=== PATIENT | female | born 1935 | race Caucasian/White ===

== ENCOUNTER 2020-01-22 12:47 | Outpatient (CLI) | payer MEDICARE, OTHER, SELFPAY ==
--- NOTE | 2020-01-22 12:53 | ECG_ITS ---
Measurements Intervals [place] Rate: 58 P: 65 OR: 213 QRS: 76 QRSD: 108 T: 4 QT: 432 QTc: 426 Interpretive Statements SINUS BRADYCARDIA WITH FIRST DEGREE AV BLOCK BORDERLINE ST-T WAVE ABNORMALITY- ANT/INF LEADS BASELINE ARTIFACT- I, II, III, AVR, AVL, AVF, V1-V6 ABNORMAL ECG Electronically Signed On 01-22-2020 13:49:29 [employer] HOME by Ric Victor D.O.
[2020-01-22 13:49] LABS: Blood Urea Nitrogen 27 mg/dL (7-17); Calcium 8.6 mg/dL (8.4-10.2); Carbon Dioxide 30 mmol/L (22-30); Chloride 104 mmol/L (98-107); Estimated Glomerular Filt Rate 36; Glucose 96 mg/dL (65-105); Potassium 3.6 mmol/L (3.4-5.0); Sodium 141 mmol/L (137-145)
== END 2020-01-22 12:48 | disposition home or self-care (01) ==
LOC: ANHSURGERY 12:53
PROVIDERS: Anesthesiology; PCP Internal Medicine Geriatric Medicine; Visit Provider Plastic Surgery
DX: Z01.812 Encounter for preprocedural laboratory examination (principal); Z01.810 Encounter for preprocedural cardiovascular examination; I10 Essential (primary) hypertension; Z79.899 Other long term (current) drug therapy; R00.1 Bradycardia, unspecified; I44.0 Atrioventricular block, first degree
CPT/HCPCS: 36415; 80048; 93005

== ENCOUNTER 2020-02-05 01:19 | Day surgery (SDC) | payer MEDICARE, OTHER, SELFPAY ==
[2020-01-17 13:51] VITALS: BMI 35.2
--- NOTE | 2020-02-04 21:17 | HP_ITS ---
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 HISTORY: The patient is 84. 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 This appears to be 3 mm in diameter, has been scabbed for months. It seems nodular with a small depression in the middle. She has never had a skin cancer before on her face. I explained that excision of this would require frozen section that may be a very small issue, but might require a minimum treatment with the skin graft should it reveal a larger tumor and then a composite graft from the ear may be necessary. She would like to proceed with this. She prefers this under MAC anesthetic. She is aware that there will be scarring, maybe some deformity to her nose, there may be a need for a donor site elsewhere. There may be numbness in the area that is operated. There are risks incumbent to sedation anesthetic. PAST MEDICAL HISTORY: Current medication list reveals vitamin D3; hydrocodone which is 10/325, given out 120 at a time by Rosmery Hendrickson, the last prescription was for 01/12/2020. She also takes pantoprazole, duloxetine, topiramate, Indapamide, trazodone, and she uses a CPAP machine. ALLERGIES: SHE HAS NO KNOWN ALLERGIES TO MEDICATION. PAST SURGICAL HISTORY: Prior surgeries include cataract surgery, ankle surgery for skin cancer, broken back surgery in 2008, and total knee in 1996. She sees someone because of a history of meningitis 2 different times in 1968 and 2007. She is a nonsmoker. REVIEW OF SYSTEMS: Indicates that she does have home oxygen, sounds like since 2007. FAMILY HISTORY: Noncontributory. SOCIAL HISTORY: She lives in [place]. Her spouse is Juanjo. PHYSICAL EXAMINATION: GENERAL: She is alert, informative, and in no distress. She is a 5 foot 3 woman, weighing 200 pounds. HEENT: Reveals the site on the left nasal ala not far from the rim between alar bulge and the lobule. CHEST: Clear to auscultation. HEART: Regular rate and rhythm by palpation. ABDOMEN: Soft, nontender. EXTREMITIES: Normal. 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 PLAN: Excision with frozen section under MAC anesthetic with possible full-thickness skin graft or a composite graft from the ear. D I MT: [facility]
[2020-02-05] VITALS (7 sets, daily range): BP systolic 118–145; BP diastolic 57–71; PULSE 56–65; RESP 12–16; TEMP 36.1–37.3; O2SAT 93–100
--- NOTE | 2020-02-05 07:19 | WPDHPUPDATE1 ---
History and Physical Update Update Date/Time: 02/05/20 07:19 History and Physical has been reviewed, including an updated exam of the patient. There are NO changes in the patient's condition. Risks, benefits, and alternatives have been discussed and questions answered. Patient agrees to proceed with procedure.
--- NOTE | 2020-02-05 08:14 | WPDANESEPPF ---
Anes - Initial Pre Proc Eval Procedure: Operation Date: 02/05/20 07:30 Proposed Procedures p Excision Ulcerated Neoplasm Left Nasal Ala With Frozen Section And Full Thickness Skin Graft Or Composite Graft - George Esqueda MD Date/Time: 02/05/20 08:14 Surgeon: George Esqueda MD Pre Op Diagnosis: Ulcerated Neoplasm Left Nasal Ala Patient Data Age: 84 Gender: F Height: 1.6 m Weight: 91.35 kg Last Vital Signs Temp 37.3 C 02/05/20 07:56 Pulse 56 L 02/05/20 07:56 Resp 16 02/05/20 07:56 BP 118/61 02/05/20 07:56 Pulse Ox 100 02/05/20 07:56 Allergies Allergy/AdvReac Type Severity Reaction Status Date / Time No Known Allergies Allergy Mild Unverified 01/17/20 13:51 Home Medications Medication Instructions Recorded Confirmed Type cholecalciferol (vitamin D3) 2,000 unit PO DAILY 01/17/20 01/17/20 History [Vitamin D3] duloxetine 60 mg PO DAILY 01/17/20 01/17/20 History hydrocodone-acetaminophen [[place]] 1 tablet PO Q6H PRN 01/17/20 01/17/20 History indapamide 1.25 mg PO DAILY 01/17/20 01/17/20 History propranolol 20 mg PO HS 01/17/20 01/17/20 History trazodone 100 mg PO HS 01/17/20 01/17/20 History Patient hx anesthesia problems: none Family hx anesthesia problems: none PMFSH Past Medical History Medical History (Updated 02/05/20 @ 08:14 by Giorgio Sheridan DO) Fibromyalgia Hypertension BOYD (obstructive sleep apnea) CPAP Surgical History Surgical History (Updated 02/04/20 @ 09:13 by Giorgio Sheridan DO) History of total left knee replacement Social History Social History Gender identity (if verbalized by the patient): Female Anes - Eval Final PreProcedure Day of Procedure 02/05/20 08:14 Patient weight: obese Heart: regular rate and rhythm Lungs: clear to auscultation and normal air movement Airway: Mallampati scale class III Neurological: alert and oriented Last oral intake: >/= 8 hours ASA classification: III Emergent: no Anesthetic plan: proceed Anesthesia type and monitoring: general GIVS and standard monitoring Informed Consent: The patient's anesthetic plan and its attendant risks and benefits were discussed with the patient/family/POA. Questions were solicited and answers provided to the satisfaction of the patient/family/POA.
[2020-02-05] MEDS: LACTATED RINGERS 1,000 ML 30 ML IV CONT (08:15)
--- NOTE | 2020-02-05 08:52 | PM.OP ---
Procedure Note - Brief Procedure Note - Brief Date of procedure: 02/05/20 Pre-op diagnosis: Ulcerated Neoplasm Left Nasal Ala Post-op diagnosis: other (BCC ) Procedure performed: 1.0 excision of BCC left nasal ala with FS and FTSG 1.0 sq cm. Anesthesia: GLMA Surgeon: George Esqueda MD Fire Extinguisher Mechanic: Dewey Estimated blood loss (mL): 3 Pathology: yes Complications: No immediate complications Condition: stable Disposition: PACU
[2020-02-05] MEDS: LIDO 1%/EPINEPHRINE 1:100,000 20 ML VIAL 3 ML INFILTRATE (09:15)
[2020-02-05] MEDS: BACITRACIN OINTMENT 15 GM TUBE 1 APPLIC TOPICAL (09:15)
--- NOTE | 2020-02-05 09:16 | SUR.OPER ---
specimen given to marina in lab by giselle
--- NOTE | 2020-02-08 10:30 | P.OP_ITS ---
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 She was taken to the operating room and placed supine on the operating table. A time-out was held and confirmed. She was given general anesthesia with an LMA. The patient was prepped and draped in the usual fashion. The lesion was carefully examined and an ink brook was placed around the periphery of this. The site was infiltrated with 1% lidocaine with epinephrine. The specimen was incised and taken off just into the subcutaneous fat tissue. A suture was placed to identify the 12 o'clock position on this oval. The specimen was sent to pathology. the pathologist reported the presence of basal cell carcinoma with free margins. The wound was closed with a full- thickness skin graft from the left upper neck. The donor site was closed with intradermal 4-0 Vicryl suture and glue the graft was carefully defatted and inset with 5 0 nylon including quilting stitches to close space. The patient was transported to the recovery room in stable condition. She will be given a prescription for cephalexin and tramadol. Surgeon: George Esqueda MD
== END 2020-02-05 12:06 | disposition home or self-care (01) ==
PROVIDERS: PCP Internal Medicine Geriatric Medicine; Visit Provider Plastic Surgery
PROC: (CPT 11641; principal; 2020-02-05 07:30)
DX: C44.311 Basal cell carcinoma of skin of nose (principal); I10 Essential (primary) hypertension; G47.33 Obstructive sleep apnea (adult) (pediatric); M79.7 Fibromyalgia; Z79.891 Long term (current) use of opiate analgesic; E66.9 Obesity, unspecified; Z68.35 Body mass index [BMI] 35.0-35.9, adult; Z99.81 Dependence on supplemental oxygen
CPT/HCPCS: 11641; 15260; 88305; 88331; A9270; J0131; J1100; J2370; J2405; J2704; J3010; J7120

== ENCOUNTER 2023-06-02 17:01 | Emergency (ER) | payer MEDICARE, OTHER, SELFPAY ==
--- NOTE | ~2023-06-02 | XR_ITS ---
EXAM: XR knee RT min 4V DATE: 06/02/2023 17:41 HISTORY: TWISTING INJURY, MEDIAL KNEE PAIN . COMPARISON: None available. FINDINGS: Decreased mineralization. No fracture or dislocation. No lytic or blastic lesion. Tricompa rtmental osteoarthritis. Moderate volume joint fluid. No erosion or periosteal change. Soft tissues w ithin normal limits. IMPRESSION: Moderate joint effusion. No acute osseous finding in the right knee. Osteopenia. Reviewed, dictated and finalized at location K. IMPRESSION: Moderate joint effusion. No acute osseous finding in the right knee . Osteopenia.
[2023-06-02 17:10] VITALS: BP 154/57; PULSE 75; RESP 20; TEMP 36.8; O2SAT 96
--- NOTE | 2023-06-02 17:49 | ED.LOWEXIN ---
HPI - Extremity Injury (Lower) General Chief Complaint: Extremity Injury, Lower Stated Complaint: Right knee pain Time Seen by Provider: 06/02/23 17:48 Source: patient and RN notes reviewed Mode of arrival: ambulatory Limitations: no limitations History of Present Illness HPI Narrative: 87-year-old female presents concern for right knee pain. Reports 5 days ago she felt a pop when she was walking. She reports it is painful when she is walking on it, when she sits down. She reports that swollen. She denies intervention. She uses a walker at baseline. She denies redness, warmth, open skin. MD complaint: knee injury Related Data Home Medications Medication Instructions Recorded Confirmed cholecalciferol (vitamin D3) 100 2,000 unit PO DAILY 01/17/20 06/02/23 mcg (4,000 unit) capsule (Vitamin D3) propranolol 20 mg tablet 20 mg PO BID 01/17/20 06/02/23 trazodone 50 mg tablet 100 mg PO HS 01/17/20 06/02/23 bumetanide 0.5 mg tablet 0.5 mg PO DAILY 06/02/23 06/02/23 duloxetine 40 mg capsule,delayed 40 mg PO DAILY 06/02/23 06/02/23 release hydrocodone 10 mg-acetaminophen 1 tablet PO Q6H 06/02/23 06/02/23 325 mg tablet topiramate 50 mg tablet 50 mg PO DAILY 06/02/23 06/02/23 Allergies Allergy/AdvReac Type Severity Reaction Status Date / Time No Known Allergies Allergy Mild Unverified 02/05/20 08:34 Review of Systems Review of Systems: CONSTITUTIONAL: Denies malaise, chills, sweats, or fever. SKIN: Denies rash or itching, open skin, laceration, abrasion, redness, warmth MUSCULOSKELETAL: Reports right knee pain NEUROLOGIC: Denies numbness, weakness All systems reviewed & are unremarkable except as noted in HPI and below PMFSH Past Medical History Medical History (Updated 06/02/23 @ 17:58 by Valerie Raphael NP) Fibromyalgia Hypertension BOYD (obstructive sleep apnea) CPAP Surgical History Surgical History (Updated 02/04/20 @ 09:13 by Giorgio Sheridan DO) History of total left knee replacement Social History Social History Gender identity (if verbalized by the patient): Female Comments At time of signature, agree with nursing past medical, surgical, social and family history. There is no relevant family history pertinent to the presenting complaint Exam Narrative: GENERAL: Well-appearing, well-nourished, and in no acute distress. HEAD: Normocephalic, atraumatic. EYES: PERRLA, conjunctivae clear NECK: Supple. CHEST: Speaks in full sentences. No respiratory distress. HEART: Regular rate and rhythm. Normal and equal peripheral pulses. EXTREMITIES: Right knee has grossly normal strength and sensation, limited range of motion likely due to pain. No discernible edema, erythema, or ecchymosis. 4/5 strength with the flexion and extension. Normal sensation with sensitivity to light touch and pain. Medial anterior tenderness. No open wounds, no skin tenting, no devitalized tissue or atrophy, no trophic changes, no obvious deformity, alignment normal, nearby joints and structures intact. Distal pulses palpable and equal bilaterally, skin warm, dry, pink. Capillary refill less than 3 seconds. SKIN: Warm, dry, no rash. NEURO: Alert and oriented x3. PSYCH: Normal mood and affect Course Course Emergency Course: Patient is aware of diagnosis, understands and agrees to treatment plan. Anticipatory guidance given. Patient agrees to follow-up as directed and is aware of reasons to seek care at the emergency department. Portions of this record may have been created with voice recognition software Level of Care: Express Care Visit Vital Signs Vital signs: Vital Signs Temperature 98.2 F 06/02/23 17:10 Pulse Rate 75 06/02/23 17:10 Respiratory Rate 20 06/02/23 17:10 Blood Pressure 154/57 H 06/02/23 17:10 Pulse Oximetry 96 06/02/23 17:10 Oxygen Delivery Room Air 06/02/23 17:10 Temperature 98.2 F 06/02/23 17:10 Pulse Rate 75 06/02/23 17:10 Respiratory Rate
== END 2023-06-02 18:00 | disposition home or self-care (01) ==
PROVIDERS: Emergency Provider Nurse Practitioner; PCP Internal Medicine Geriatric Medicine
DX: M25.461 Effusion, right knee (principal); M79.7 Fibromyalgia; I10 Essential (primary) hypertension; G47.33 Obstructive sleep apnea (adult) (pediatric)
CPT/HCPCS: 73564; 99203; G0463